=== PATIENT | female | born 1980 | race Two or more races ===

== ENCOUNTER 2017-10-15 11:00 | Day surgery (SDC) | payer OTHER ==
[~2017-10-15 11:00] MED LIST: LOPRESSOR25 MG PO; PROVENTIL2.5 MG/3 M IH
== END 2017-10-15 15:40 | disposition home or self-care (01) ==
LOC: AMB-ENDOS 11:00
DX: D13.1 Benign neoplasm of stomach (principal)

== ENCOUNTER 2020-01-11 19:43 | Inpatient (IN) | payer OTHER ==
[~2020-01-11] VITALS: Ht 167.6 cm; Wt 89.4 kg
[2020-01-11] MEDS ORDERED: PRENATAL TABLE1 EAC1 PO (20:49)
[2020-01-11] MEDS ORDERED: FERRLECIT62.5 MG/2 IV (20:50)
[2020-01-11] MEDS ORDERED: SYNTHROID75 MCG PO (20:50)
== END 2020-01-12 11:29 | disposition home or self-care (01) | DRG 833 ==
LOC: LDR 19:43
PROVIDERS: ADMIT Obstetrics & Gynecology Maternal & Fetal Medicine; ATTEND Obstetrics & Gynecology Maternal & Fetal Medicine
PROC: 4A1HXFZ Monitoring of Products of Conception, Cardiac Rhythm, External Approach (ICD-10-PCS; principal; 2020-01-11)
PROC: BY4FZZZ Ultrasonography of Third Trimester, Single Fetus (ICD-10-PCS; 2020-01-11)
DX: O26.853 Spotting complicating pregnancy, third trimester (principal); Z3A.29 29 weeks gestation of pregnancy; Z37.0 Single live birth

== ENCOUNTER 2020-03-09 10:04 | Outpatient (CLI) | payer OTHER ==
[~2020-03-09 10:04] MED LIST changes: +FERRLECIT62.5 MG/2 IV; +PRENATAL TABLE1 EAC1 PO; +SYNTHROID75 MCG PO
== END 2020-03-09 11:18 | disposition home or self-care (01) ==
LOC: NST 10:04
PROVIDERS: ATTEND Obstetrics & Gynecology Maternal & Fetal Medicine
DX: Z34.83 Encounter for supervision of other normal pregnancy, third trimester (principal)

== ENCOUNTER 2020-03-23 08:26 | Outpatient (CLI) | payer OTHER ==
[2020-03-26] MEDS ORDERED: IRON PO (02:37)
[2020-03-26] MEDS ORDERED: SYNTHROID88 MCG PO (02:38)
== END 2020-03-23 11:21 | disposition home or self-care (01) ==
LOC: NST 08:26
PROVIDERS: ATTEND Obstetrics & Gynecology Maternal & Fetal Medicine
DX: Z34.83 Encounter for supervision of other normal pregnancy, third trimester (principal)